=== PATIENT | female | born 1990 | race American Indian/Alaskan Native ===

== ENCOUNTER 2017-11-07 12:08 | Emergency (ER) | payer MEDICAID ==
[2017-11-07 12:59] VITALS: BMI 52.4
[2017-11-07 13:10] VITALS: RESP 18
[2017-11-07] MEDS ORDERED: Sodium Chloride 0.9% 1,000 ML IV STA (13:36)
[2017-11-07 14:26] LABS: PH,URINE 6.5 (4.7-8.0); URINE BILIRUBIN NEGATIVE (NEGATIVE); URINE BLOOD NEGATIVE (NEGATIVE); URINE GLUCOSE (UA) NEGATIVE (NEGATIVE); URINE LEUKOCYTE ESTERASE NEGATIVE Leu/uL (NEGATIVE); URINE PROTEIN TRACE mg/dL (<30 mg/dL); URINE UROBILINOGEN 0.2 E.U./dL (<1 E.U./dL)
[2017-11-07 14:27] LABS: URINE APPEARANCE CLEAR (CLEAR); URINE COLOR YELLOW (YELLOW)
[2017-11-07 14:38] LABS: URINE BACTERIA MOD (NEG); URINE RBC 0 - 2 /hpf (0-2)
[2017-11-07 14:41] LABS: BASO # 0.02 K/mm3 (0.0-2.0); BASO % 0.2 % (0.0-3.0); EOS # 0.2 (0.0-0.7); EOS % 1.6 % (1.5-5.0); GRAN # 6.75 (1.4-6.5); GRAN % 65.8 % (50.0-68.0); HEMOGLOBIN 9.5 g/dL (12.0-16.0); LYMPH # 2.9 (1.2-3.4); LYMPH % 28.5 % (22.0-35.0); MEAN CELL VOLUME 76.5 fl (80.0-105.0); MEAN CORPUSCULAR HEMOGLOBIN 23.5 pg (25.0-35.0); MEAN CORPUSCULAR HGB CONC 30.7 g/dl (31.0-37.0); MEAN PLATELET VOLUME 9.8 fl (7.0-11.0); MONO # 0.4 (0.1-0.6); MONO % 3.9 % (1.0-6.0); RBC 4.04 10^6/uL (3.5-6.1); RED CELL DISTRIBUTION WIDTH 16.5 % (11.5-14.5); WHITE BLOOD COUNT 10.3 10^3/ul (4.5-11.0)
[2017-11-07 14:50] LABS: ALB/GLOB RATIO 1.1 (1.1-1.8); ALBUMIN 4.6 g/dL (3.0-4.8); ALT/SGPT 33 U/L (7-56); AST/SGOT 39 U/L (14-36); BLOOD UREA NITROGEN 11 mg/dL (7-21); CALCIUM 9.4 mg/dL (8.4-10.5); GFR NON-AFRICAN AMERICAN > 60
--- NOTE | 2017-11-07 14:53 | ED PDOC ---
Arrival/HPI - General Chief Complaint: Abdominal Pain Time Seen by Provider: 11/07/17 13:36 Historian: Patient - History of Present Illness Narrative History of Present Illness (Text): 11/07/17 13:36 26 year old female, with no significant past medical history, presents to the Emergency department complaining of abdominal pain since 1 week. Patient states she was recently diagnosed with UTI and has been prescribed antibiotics by her PMD. Patient informs dysuria associated with increased abdominal pain for past couple of days but denies any nausea, vomiting, diarrhea or vaginal bleeding. However, patient informs noticing blood in urine but denies any urinary output changes. As per patient, her PMD has been checking her urine frequently and informs no sign of infection subsequently referring her to the Emergency department for further evaluation. Patient denies any fever, chest pain, shortness of breath, neck pain, back pain, headache, dizziness or any other complaints. Time/Duration: 1 week Symptom Onset: Gradual Symptom Course: Unchanged Quality: Aching Activities at Onset: Light Context: Home Past Medical History - Provider Review Nursing Documentation Reviewed: Yes - Cardiac Hx Cardiac Disorders: Yes Hx Hypertension: Yes - Hematological/Oncological Hx Anemia: Yes - Psychiatric Hx Substance Use: No Family/Social History - Physician Review Nursing Documentation Reviewed: Yes Family/Social History: No Known Family HX Smoking Status: Never Smoked Hx Alcohol Use: No Hx Substance Use: No Allergies/Home Meds Allergies/Adverse Reactions: Allergies Sulfa (Sulfonamide Antibiotics) Allergy (Verified 11/07/17 12:58) RASH Home Medications: Home Meds Medication Instructions Recorded Confirmed Atorvastatin [Lipitor] 40 mg PO DAILY 11/07/17 11/07/17 Iron Ps Cmplx/Vit B12/FA [Ferrex 1 cap PO DAILY 11/07/17 11/07/17 150 Forte 25 Mcg-1 mg-150 mg] Lisinopril [Zestril] 40 mg PO DAILY 11/07/17 11/07/17 hydroCHLOROthiazide [Microzide] 50 mg PO DAILY 11/07/17 11/07/17 Review of Systems - Physician Review All systems were reviewed & negative as marked: Yes - Review of Systems Constitutional: absent: Fevers Respiratory: absent: SOB Cardiovascular: absent: Chest Pain Gastrointestinal: Abdominal Pain. absent: Diarrhea, Nausea, Vomiting, Hematochezia Genitourinary Female: Hematuria. absent: Dysuria, Urine Output Changes, Vaginal Bleeding Musculoskeletal: absent: Back Pain, Neck Pain Neurological: absent: Headache, Dizziness Physical Exam Vital Signs Reviewed: Yes Vital Signs Temp Pulse Resp BP Pulse Ox 11/07/17 12:59 98.9 F 77 18 120/71 98 Temperature: Afebrile Blood Pressure: Normal Pulse: Regular Respiratory Rate: Normal Appearance: Positive for: Well-Appearing, Non-Toxic, Comfortable Pain Distress: None Mental Status: Positive for: Alert and Oriented X 3 - Systems Exam Head: Present: Atraumatic, Normocephalic Pupils: Present: PERRL Extroacular Muscles: Present: EOMI Conjunctiva: Present: Normal Neck: Present: Normal Range of Motion Respiratory/Chest: Present: Clear to Auscultation, Good Air Exchange. No: Respiratory Distress, Accessory Muscle Use Cardiovascular: Present: Regular Rate and Rhythm, Normal S1, S2. No: Murmurs Abdomen: Present: Tenderness (diffuse abdominal tenderness). No: Distention, Peritoneal Signs Back: Present: Normal Inspection. No: CVA Tenderness Upper Extremity: Present: Normal Inspection. No: Cyanosis, Edema Lower Extremity: Present: Normal Inspection. No: Edema Neurological: Present: GCS=15, CN II-XII Intact, Speech Normal Skin: Present: Warm, Dry, Normal Color. No: Rashes Psychiatric: Present: Alert, Oriented x 3, Normal Insight, Normal Concentration Medical Decision Making ED Course and Treatment: 11/07/17 13:54 Patient is nontoxic well appearing with stable vital signs presenting with lower abdominal pain with UTI Symptoms. CBC hbg;9.5 CMP wnl Lipase wnl Urinalysis no leukocytes, no blood CAT scan: FINDINGS: LOWER THORAX: Unremarkable. LIVER: Hepatomegaly/hepatic steatosis. No focal abnormalities identified. GALLBLADDER AND BILE DUCTS: Unremarkable. PANCREAS: Unremarkable. No gross lesion or ductal dilatation. SPLEEN: Unremarkable. ADRENALS: Unremarkable. No mass. KIDNEYS AND URETERS: Unremarkable. No hydronephrosis. No solid mass. VASCULATURE: Unremarkable. No aortic aneurysm. BOWEL: Unremarkable. No obstruction. No gross mural thickening. APPENDIX: Normal appendix. PERITONEUM: Unremarkable. No free fluid. No free air. LYMPH NODES: Unremarkable. No enlarged lymph nodes. BLADDER: Unremarkable. REPRODUCTIVE: The uterus. Bilateral adnexal cysts, likely physiologic. BONES: No acute fracture. OTHER FINDINGS: None. IMPRESSION: No acute findings related to/accounting for the clinical presentation. Additional benign and/or incidental findings described above. We'll start Keflex by mouth for dysuria/urinary frequency and hematuria and follow with urine cultures. Patient reassessment: Patient is nontoxic well-appearing in no distress with stable vital signs. I discussed all results in depth with the patient advised follow-up with the primary care physician and linderman machine operator within the next 2 days. I've advised taking Keflex twice daily 7 days. Discussed all results with patient in depth Patient verbalizes understanding of discharge instructions and need for immediate followup. Patient states she already has follow-up with her linderman machine operator scheduled. all aspects of this case were discussed the attending of record. Impression: Abdominal pain, dysuria Motrin every 6 hours as needed for pain keflex; 1 capsule twice daily x 7 days. Follow up with primary care physician within the next 2 days Follow up with B[employer] SUPERVISOR within the next 2 days. Return immediately if symptoms worsen persist or if new symptoms develop: High fevers, increasing pain, vomiting, diarrhea or any other concerning symptoms develop - Lab Interpretations Lab Results: 11/07/17 14:30 11/07/17 14:30 Lab Results 11/07/17 14:30: WBC 10.3, RBC 4.04, Hgb 9.5 L, Hct 30.9 L, MCV 76.5 L, MCH 23.5 L, MCHC 30.7 L, RDW 16.5 H, Plt Count 371, MPV 9.8, Gran % 65.8, Lymph % (Auto) 28.5, [place] % (Auto) 3.9, Eos % (Auto) 1.6, Baso % (Auto) 0.2, Gran # 6.75 H, Lymph # (Auto) 2.9, [place] # (Auto) 0.4, Eos # (Auto) 0.2, Baso # (Auto) 0.02 11/07/17 14:30: Sodium 139, Potassium 3.4 L, Chloride 100, Carbon Dioxide 30, Anion Gap 12, BUN 11, Creatinine 0.6 L, Est GFR ( Amer) > 60, Est GFR ( Non-Af Amer) > 60, Random Glucose 84, Calcium 9.4, Total Bilirubin 0.9, AST 39 H , ALT 33, Alkaline Phosphatase 71, Total Protein 8.6 H, Albumin 4.6, Globulin 4.0, Albumin/Globulin Ratio 1.1 11/07/17 14:00: Urine Color Yellow, Urine Appearance Clear, Urine pH 6.5, Ur Specific [place] 1.020, Urine Protein Trace H, Urine Glucose (UA) Negative, Urine Ketones Negative, Urine Blood Negative, Urine Nitrate Negative, Urine Bilirubin Negative, Urine Urobilinogen 0.2, Ur Leukocyte Esterase Negative, Urine RBC 0 - 2, Urine WBC 2 - 5, Ur Epithelial Cells 6 - 8, Urine Bacteria Mod - RAD Interpretation Radiology Orders: 11/07/17 13:36 ABD & PELVIS IV CONTRAST ONLY [CT] Stat CHEST PORTABLE [RAD] Stat - Medication Orders Current Medication Orders: Discontinued Medications Cephalexin Monohydrate (Keflex) 500 mg PO STAT STA PRN Reason: Protocol Stop: 11/07/17 17:50 Sodium Chloride (Sodium Chloride 0.9%) 1,000 mls @ 999 mls/hr IV .Q1H1M STA Stop: 11/07/17 14:36 Last Admin: 11/07/17 14:37 Dose: 999 mls/hr eMAR Start Stop Document 11/07/17 14:37 HI (Rec: 11/07/17 14:[address] [id number] Intravenous Solution Start Date 11/07/17 Start Time 14:38 Ketorolac Tromethamine (Toradol) 30 mg IVP STAT STA Stop: 11/07/17 17:17 Last Admin: 11/07/17 17:42 Dose: 30 mg MAR Pain Assessment Document 11/07/17 17:42 HI (Rec: 11/07/17 17:[address] [id number] Pain Reassessment Is this a pain reassessment? No Sleep Is patient sleeping during reassessment? No Presence of Pain Presence of Pain Yes Location Pain Location Body Site Abdomen IVP Administration Document 11/07/17 17:42 HI (Rec: 11/07/17 17:[address] [id number] Charges for Administration # of IVP Administrations 1 - PA / [employer] SETTLING TENDER / Resident Statement MD/DO has reviewed & agrees with the documentation as recorded. - Scribe Statement The provider has reviewed the documentation as recorded by the Scribe Meharn Jimenez. All medical record entries made by the Scribe were at my direction and personally dictated by me. I have reviewed the chart and agree that the record accurately reflects my personal performance of the history, physical exam, medical decision making, and the department course for this patient. I have also personally directed, reviewed, and agree with the discharge instructions and disposition. Disposition/Present on Arrival - Present on Arrival Any Indicators Present on Arrival: No History of DVT/PE: No History of Uncontrolled Diabetes: No Urinary Catheter: No History of Decub. Ulcer: No History Surgical Site Infection Following: None - Disposition Have Diagnosis and Disposition been Completed?: Yes Diagnosis: Abdominal pain, Dysuria Disposition: HOME/ ROUTINE Disposition Time: 17:20 Patient Plan: Discharge Patient Problems: Current Active Problems Problem Status Onset Abdominal pain Acute Dysuria Acute Condition: GOOD Discharge Instructions (ExitCare): Acute Abdomen (Belly Pain), Adult (DC), Dysuria, Adult (DC) Additional Instructions: Motrin every 6 hours as needed for pain keflex; 1 capsule twice daily x 7 days. Follow up with primary care physician within the next 2 days Follow up with B[employer] SUPERVISOR within the next 2 days. Return immediately if symptoms worsen persist or if new symptoms develop: High fevers, increasing pain, vomiting, diarrhea or any other concerning symptoms develop Prescriptions: Cephalexin [Keflex] 500 mg PO BID #14 capsule Ibuprofen [Motrin] 600 mg PO Q6H PRN #20 tab PRN Reason: pain/fever reduction Referrals: Juan Jose Bailey, ANDREW, ADMISSIONS CONSULTANT [Primary Care Provider] - Follow up with primary Linwood Conway MD [Staff Provider] - [facility]] - Follow up with primary Forms: [employer] ([place]), WORK NOTE
--- NOTE | 2017-11-07 15:13 | RAD ---
Date of service: 11/07/2017 HISTORY: Abdominal pain COMPARISON: No prior. FINDINGS: LUNGS: The lungs are well inflated. There is mild pulmonary venous congestion. PLEURA: No significant pleural effusion identified, no pneumothorax apparent. CARDIOVASCULAR: There is severe cardiomegaly. OSSEOUS STRUCTURES: No significant abnormalities. VISUALIZED UPPER ABDOMEN: Normal. OTHER FINDINGS: None. IMPRESSION: Severe cardiomegaly and mild pulmonary venous congestion. No acute findings.
--- NOTE | 2017-11-07 17:11 | CT ---
Date of service: 11/07/2017 PROCEDURE: CT Abdomen and Pelvis with contrast HISTORY: Epigastric, right-sided abdominal pain. COMPARISON: None. TECHNIQUE: Contrast dose: 150 cc Omnipaque 300 Radiation dose: Total exam DLP = 1128.04 mGy-cm. This CT exam was performed using one or more of the following dose reduction techniques: Automated exposure control, adjustment of the mA and/or kV according to patient size, and/or use of iterative reconstruction technique. FINDINGS: LOWER THORAX: Unremarkable. LIVER: Hepatomegaly/hepatic steatosis. No focal abnormalities identified. GALLBLADDER AND BILE DUCTS: Unremarkable. PANCREAS: Unremarkable. No gross lesion or ductal dilatation. SPLEEN: Unremarkable. ADRENALS: Unremarkable. No mass. KIDNEYS AND URETERS: Unremarkable. No hydronephrosis. No solid mass. VASCULATURE: Unremarkable. No aortic aneurysm. BOWEL: Unremarkable. No obstruction. No gross mural thickening. APPENDIX: Normal appendix. PERITONEUM: Unremarkable. No free fluid. No free air. LYMPH NODES: Unremarkable. No enlarged lymph nodes. BLADDER: Unremarkable. REPRODUCTIVE: The uterus. Bilateral adnexal cysts, likely physiologic. BONES: No acute fracture. OTHER FINDINGS: None. IMPRESSION: No acute findings related to/accounting for the clinical presentation. Additional benign and/or incidental findings described above.
[2017-11-07 20:56] VITALS: BP 122/74; PULSE 72; TEMP 98.7; O2SAT 99
== END 2017-11-07 18:48 | disposition home or self-care (01) ==
LOC: ED 12:08
DX: R10.13 Epigastric pain (principal); R30.0 Dysuria; I10 Essential (primary) hypertension
CPT/HCPCS: 71045; 74177; 80053; 81001; 85025; 87086; 96374; 99284; J1885; J7030; Q9967